=== PATIENT | female | born 1945 ===

== ENCOUNTER 2020-08-15 07:21 | Day surgery (SDC) | payer MEDICARE, OTHER ==
[~2020-08-15 07:21] MED LIST: Lactated Ringers 1,000 ML IV SCH; Propofol 200 MG/20 ML SDV ONE; fentaNYL 100 MCG/2 ML SDV ONE
[2020-08-15] MEDS ORDERED: Lidocaine 2% 5 ML SDV ONE (07:31)
[2020-08-15] MEDS ORDERED: Albuterol/Ipratropium 3.0-0.5 MG/3 ML Neb Soln NEB ONE (07:46)
[2020-08-15] MEDS ORDERED: Albuterol/Ipratropium 3.0-0.5 MG/3 ML Neb Soln ONE (07:48)
--- NOTE | 2020-08-15 07:52 | PCM.PREANE ---
Preanesthetic Assessment - Anesthesia/Transfusion/Family Hx Anesthesia History: Prior Anesthesia Without Reaction Family History of Anesthesia Reaction: No Transfusion History: No Prior Transfusion(s) Intubation History: Unknown - Review of Systems General: No Symptoms Pulmonary: No Symptoms Cardiovascular: No Symptoms Gastrointestinal: Other (h/o colon polyps 5 years ago, lost about 10 pounds last year (unexplained), underweight) Neurological: No Symptoms Other: Reports: None - Physical Assessment Height: 5 ft 6 in Weight: 41.731 kg ASA Class: 3 Mental Status: Alert & Oriented x3 Airway Class: Mallampati = 2 Dentition: Reports: Partial (upper and lower (removable)) Thyro-Mental Finger Breadths: 3 Mouth Opening Finger Breadths: 3 ROM/Head Extension: Full Lungs: Normal Respiratory Effort, Wheezing Cardiovascular: Regular Rate, Regular Rhythm - Allergies Allergies/Adverse Reactions: Allergies Allergy/AdvReac Type Severity Reaction Status Date / Time No Known Allergies Allergy Verified 08/11/20 08:12 - Blood Blood Available: No - Anesthesia Plan Pre-Op Medication Ordered: None - Acknowledgements Anesthesia Type Planned: MAC Pt an Appropriate Candidate for the Planned Anesthesia: Yes Alternatives and Risks of Anesthesia Discussed w Pt/Guardian: Yes Pt/Guardian Understands and Agrees with Anesthesia Plan: Yes PreAnesthesia Questionnaire HEENT History: Reports: Allergic Rhinitis, Impaired Vision, Other (See Below) Other HEENT History: wears glasses, has upper and lower dentures Cardiovascular History: Reports: None Respiratory History: Reports: COPD Gastrointestinal History: Reports: Colon Polyp, Diverticulosis Genitourinary History: Reports: None [facility]ER [employer]OOKER History: Reports: Musculoskeletal History: Reports: None Neurological History: Reports: Other (See Below) (h/o syncopy) Psychiatric History: Reports: Other (See Below) (memory impairment (gradual on set)) Endocrine/Metabolic History: Reports: None Hematologic History: Reports: None Immunologic History: Reports: None Oncologic (Cancer) History: Reports: None Dermatologic History: Reports: None - Past Surgical History Head Surgeries/Procedures: Reports: None HEENT Surgical History: Reports: None Cardiovascular Surgical History: Reports: None Respiratory Surgical History: Reports: None GI Surgical History: Reports: Colonoscopy (5 years ago) Female Surgical History: Reports: Section Endocrine Surgical History: Reports: None Neurological Surgical History: Reports: None Musculoskeletal Surgical History: Reports: None Oncologic Surgical History: Reports: None Dermatological Surgical History: Reports: None - SUBSTANCE USE Tobacco Use Status *Q: Current Some Day Tobacco User Tobacco Use Within Last Twelve Months: Cigarettes - HOME MEDS Home Medications: Home Meds Calcium Carbonate/Vitamin D3 [Calcium 600 + Vit D 400 Tablet] 1 tab PO DAILY 09/17/15 [History] Iron 65 mg PO DAILY 09/17/15 [History] Multivitamin [Multivitamins] 1 tab PO DAILY 09/17/15 [History] - CURRENT (IN HOUSE) MEDS Current Meds: Current Medications Lactated Ringer's (Ringers, Lactated) 1,000 mls @ 125 mls/hr IV ASDIRECTED TONNY Discontinued Medications Fentanyl (Sublimaze) Confirm Administered Dose 100 mcg .ROUTE .STK-MED ONE Stop: 08/15/20 07:22 Lidocaine (Xylocaine-Mpf 2%) Confirm Administered Dose 5 ml .ROUTE .STK-MED ONE Stop: 08/15/20 07:32 Propofol (Diprivan 20 Ml) Confirm Administered Dose 400 mg .ROUTE .STK-MED ONE Stop: 08/15/20 07:22
--- NOTE | 2020-08-15 09:14 | PCM.OPNOTE ---
- General Post-Op/Procedure Note Date of Surgery/Procedure: 08/15/20 Operative Procedure(s): Colonoscopy with cold sigmoid colon polypectomy Pre Op Diagnosis: History of colon polyps. Unexplained weight loss. Post-Op Diagnosis: Sigmoid colon polyp. No evidence of neoplasia. Anesthesia Technique: MAC (ASA III) Primary Surgeon: Anderson Bello Condition: Good Free Text/Narrative:: DICTATION [id number] CPT CODE 81606
[2020-08-15] MEDS ORDERED: Lactated Ringers 1,000 ML IV SCH (09:15)
--- NOTE | 2020-08-15 09:26 | PCM.POSTAN ---
POST ANESTHESIA ASSESSMENT - MENTAL STATUS Mental Status: Alert, Oriented - VITAL SIGNS Vital Signs: Last Vital Signs Temp 36.3 C 08/15/20 08:14 Pulse 64 08/15/20 09:18 Resp 17 08/15/20 09:18 BP 102/53 L 08/15/20 09:18 Pulse Ox 100 08/15/20 09:18 - RESPIRATORY Respiratory Status: Respiratory Rate WNL, Airway Patent, O2 Saturation Stable - CARDIOVASCULAR CV Status: Pulse Rate WNL, Blood Pressure Stable - GASTROINTESTINAL GI Status: No Symptoms - PAIN Pain Score: 0 - POST OP HYDRATION Hydration Status: Adequate & Stable - OBSERVATIONS Free Text/Narrative:: No anesthesia problems
--- NOTE | 2020-08-15 09:44 | PCM48HPAN ---
Post Anesthesia Note - EVALUATION WITHIN 48HRS OF ANESTHETIC Vital Signs in Normal Range: Yes Patient Participated in Evaluation: Yes Respiratory Function Stable: Yes Airway Patent: Yes Cardiovascular Function Stable: Yes Hydration Status Stable: Yes Pain Control Satisfactory: Yes Nausea and Vomiting Control Satisfactory: Yes Mental Status Recovered: Yes Vital Signs: Last Vital Signs Temp 36.3 C 08/15/20 08:14 Pulse 64 08/15/20 09:18 Resp 17 08/15/20 09:18 BP 102/53 L 08/15/20 09:18 Pulse Ox 100 08/15/20 09:18 - COMMENTS/OBSERVATIONS Free Text/Narrative:: No anesthesia problems
[2020-08-15 09:56] VITALS: BP 98/65; PULSE 104
--- NOTE | 2020-08-15 12:14 | OR ---
SURGEON: Anderson Bello M.D. DATE OF PROCEDURE: 08/15/2020 OPERATION PERFORMED: Colonoscopy with cold sigmoid colon polypectomy. PRIMARY SURGEON: Anderson Bello M.D. ANESTHESIA: MAC. ASA CLASSIFICATION: III. PREOPERATIVE DIAGNOSES: 1. Personal history of colon polyps. 2. Unexplained weight loss. POSTOPERATIVE DIAGNOSIS: Sigmoid colon polyp. DESCRIPTION OF PROCEDURE: The patient was taken to the endoscopy room and positioned on the endoscopy table in the left lateral decubitus position. Time-out was called for appropriate identification of the patient and procedure. Monitored anesthesia care was provided. The colonoscope was inserted into the rectum and advanced with minimal difficulty to the cecum where the colonoscope was retroflexed to visualize the ascending colon from below. The colonoscope was then straightened and slowly withdrawn. The cecum, ascending colon, hepatic flexure, transverse colon, splenic flexure, and descending colon were very well visualized. No tumors, polyps, diverticula, or angiodysplastic changes were noted anywhere in those segments. One polyp was encountered in the distal sigmoid colon and this was removed with multiple bites of the cold biopsy forceps. No significant bleeding was noted. Once the colonoscope was withdrawn to the rectum, it was retroflexed to visualize the anal orifice from above. Again, no tumors or polyps were seen and there were no acute hemorrhoidal changes. The colonoscope was then straightened, the rectum aspirated, and the colonoscope removed. The patient tolerated the procedure well and was taken to recovery room in stable condition. MT / LETTY /[id number]
== END 2020-08-15 09:45 | disposition home or self-care (01) ==
LOC: MW.SDS 07:21
PROVIDERS: ATTEND Surgery
DX: D12.5 Benign neoplasm of sigmoid colon (principal); J44.9 Chronic obstructive pulmonary disease, unspecified; F17.210 Nicotine dependence, cigarettes, uncomplicated; Z79.899 Other long term (current) drug therapy; Z86.010 Personal history of colon polyps; Z98.890 Other specified postprocedural states
CPT/HCPCS: 45380; J2704; J3010; J7120; 88305; J7620-GY